=== PATIENT | male | born 1970 | race Hispanic/Latino ===

== ENCOUNTER 2017-04-15 09:09 | Emergency (ER) | payer OTHER ==
[~2017-04-15] VITALS: Ht 177.8 cm; Wt 133.8 kg
[~2017-04-15 09:09] MED LIST: BACTRIM DS TAB1 EACH PO; CLEOCIN HCL300 MG PO; COZAAR50 MG PO; NORCO 10MG-325MG1 EA PO; SENNA-S TABLET1 EA PO; ZOFRAN ODT4 MG SL
[2017-04-15] MEDS ORDERED: SODIUM CHLORIDE 0.9% 1000ML 1,000 ML IV STA (09:38)
[2017-04-15 09:57] LABS: BASOPHILS # (AUTO) 0.1 (0.0-0.1); BASOPHILS % 1.4 % (0.0-1.0); EOSINOPHILS # (AUTO) 0.1 (0.0-0.4); EOSINOPHILS % 3.8 % (0.0-6.0); HEMATOCRIT 48.7 % (38.2-49.6); LYMPHOCYTES # (AUTO) 1.6 (1.0-3.2); LYMPHOCYTES % 42.2 % (18.0-39.1); MEAN CORPUSCULAR HEMOGLOBIN 29.5 pg (28-32); MEAN CORPUSCULAR HGB CONC 34.9 g/dL (31-35); MEAN CORPUSCULAR VOLUME 84.4 fL (81-99); MONOCYTES # (AUTO) 0.6 (0.2-0.8); MONOCYTES % 15.8 % (4.4-11.3); NEUTROPHILS # (AUTO) 1.3 (2.1-6.9); NEUTROPHILS % 35.7 % (38.7-80.0); PLATELET COUNT 187 x10e3/uL (140-360); RED BLOOD COUNT 5.77 x10e6/uL (4.3-5.7); RED CELL DISTRIBUTION WIDTH 13.3 % (11.7-14.4)
[2017-04-15 10:09] LABS: ALANINE AMINOTRANSFERASE 46 IU/L (0-55); ALBUMIN 3.7 g/dL (3.5-5.0); ALKALINE PHOSPHATASE 81 IU/L (40-150); ANION GAP 12.5 mmol/L (8-16); BLOOD UREA NITROGEN 16 mg/dL (7-26); BUN/CREATININE RATIO 16 (6-25); CALCIUM 8.9 mg/dL (8.4-10.2); CARBON DIOXIDE 25 mmol/L (22-29); CHLORIDE 105 mmol/L (98-107); CREATINE KINASE 158 IU/L (30-200); CREATININE, SERUM 0.98 mg/dL (0.72-1.25); EST GLOMERULAR FILTRATION RATE > 60 ML/MIN (60-); GLUCOSE 95 mg/dL (74-118); POTASSIUM 3.5 mmol/L (3.5-5.1); SODIUM 139 mmol/L (136-145)
[2017-04-15 10:15] LABS: TROPONIN I 0.015 ng/mL (0-0.300)
[2017-04-15 12:25] VITALS: BP 133/64
[2017-04-15 12:51] LABS: KETONES,URINE NEGATIVE (NEGATIVE); LEUKOCYTE ESTERASE ,URINE NEGATIVE (NEGATIVE); NITRITE,URINE NEGATIVE (NEGATIVE); URINE UROBILINOGEN 0.2 mg/dL (0.2 - 1)
[2017-04-15 13:06] LABS: BILIRUBIN,URINE 1+ (NEGATIVE); CLARITY,URINE SL CLOUDY (CLEAR); COLOR,URINE YELLOW (YELLOW); PROTEIN,URINE DIPSTICK 1+ (NEGATIVE)
[2017-04-15 13:08] LABS: AMORPHOUS SEDIMENT,URINE RARE (FEW); EPITHELIAL CELLS,URINE RARE /LPF
== END 2017-04-15 12:47 | disposition home or self-care (01) ==
LOC: ER 09:09
DX: R55 Syncope and collapse (principal); R11.0 Nausea; R53.1 Weakness; I10 Essential (primary) hypertension
CPT/HCPCS: 36415; 80053; 81001; 82550; 82553; 84484; 85025; 87086; 87400; 93005; 99284; J7030

== ENCOUNTER → 2018-03-10 | Day surgery (SDC) | payer OTHER ==
[2018-03-08 10:25] LABS: BLOOD UREA NITROGEN 17 mg/dL (7-26); BUN/CREATININE RATIO 17 (6-25); CALCIUM 9.6 mg/dL (8.4-10.2); CARBON DIOXIDE 25 mmol/L (22-29); CHLORIDE 103 mmol/L (98-107); CREATININE, SERUM 0.99 mg/dL (0.72-1.25); EST GLOMERULAR FILTRATION RATE > 60 ML/MIN (60-); GLUCOSE 94 mg/dL (74-118); SODIUM 140 mmol/L (136-145)
[~2018-03-10] MED LIST changes: +AMLODIPINE BESY10 MG PO; +BUPIVACAINE 0.5%/EPI 30 ML SDV INJ ONE; +CEFAZOLIN SOD 2 GM/D5W 50ML 50 ML IV ONE; +DEXAMETHASONE SOD PHOS INJ 4 MG/ML VIAL ONE; +FENTANYL CITRATE/PF 100MCG/2 ML INJ ONE; +HYZAAR 100-12.1 EACH; +KETOROLAC TROMETHAMINE 30 MG/ML VIAL ONE; +LEVOCETIRIZINE D5 MG; +LIDOCAINE HCL 2% LOCAL INJ 5 ML SDV VIAL INJ ONE; +MELOXICAM7.5 MG PO; +MIDAZOLAM HCL 2 MG/2 ML VIAL ONE; +ONDANSETRON HCL INJ 2 MG/ML VIAL ONE; +PROPOFOL IV EMULSION 10 MG/ML 20 ML VIAL ONE; +SEVOFLURANE INHAL SOLN 250 ML PEN BTL ONE; +TAMSULOSIN HCL0.4 MG; +ZANTAC 7575 MG; +ZANTAC50 MG/2 ML
[2018-03-10 10:00] VITALS: BP 139/59
--- NOTE | 2018-03-10 12:34 | Operative Report ---
DATE OF PROCEDURE: March 10, 2018 CLINICAL LABORATORY DIRECTOR: Nara Ardon PREOPERATIVE DIAGNOSES 1. Right knee medial meniscus tear. 2. Right knee degenerative joint disease in the knee. POSTOPERATIVE DIAGNOSIS 1. Right knee medial meniscus tear. 2. Right knee degenerative joint disease in the knee. OPERATIONS/PROCEDURES PERFORMED: Patient underwent 1. Right knee examination under anesthesia. 2. Right knee arthroscopy. 3. Right knee partial medial meniscectomy. 4. Right knee chondroplasty of the patella, trochlea, the medial femoral condyle, and medial tibial plateau, and the lateral tibial plateau. ANESTHESIA: General endotracheal intubation anesthesia. IV FLUIDS: Per the anesthesia record. OPERATIVE PROCEDURE IN DETAIL: Mr. Izquierdo was taken to the operating room, placed in the supine position on the operating room table. Following induction general anesthesia as well as endotracheal intubation, the patient's right lower extremity was examined under anesthesia. He has found to have a mild effusion within the knee joint but otherwise ligamentously stable knee. The patient's lower extremity was prepped and draped in standard surgical fashion. A 2-portal technique was used to provide this patient arthroscopic evaluation of the knee joint. Examination of suprapatellar pouch, medial and lateral gutters found no evidence of loose bodies. There was; however, evidence of chondromalacia of the patellar and trochlear surfaces. Scope was advanced in the medial compartment and chondromalacia of the medial femoral condyle and medial tibial plateau was encountered. There was also a torn medial meniscus. A combination of biting forceps and a motorized shaver were used resect the torn portion of meniscus. Chondroplasties of the medial femoral condyle and medial tibial plateau were performed at this time. Scope was advanced to the intercondylar notch. Anterior cruciate ligament was identified and found to be intact. Scope was advanced in lateral compartment and there was chondromalacia of the lateral tibial plateau. Chondroplasty of the lateral tibial plateau was performed at this time. Scope was then advanced to suprapatellar pouch and chondroplasties of patella and trochlea were performed. The knee was deflated of its sterile normal saline. The portal sites were closed. The knee was injected with Marcaine with epinephrine. Sterile dressings were applied. The patient was awakened and taken to postanesthesia care unit in stable condition. Job#: [id number] [facility]
== END | disposition home or self-care (01) ==
LOC: OR 05:48
PROVIDERS: ATTEND Specialist
DX: S83.221A Peripheral tear of medial meniscus, current injury, right knee, initial encounter (principal); M17.11 Unilateral primary osteoarthritis, right knee; S76.311A Strain of muscle, fascia and tendon of the posterior muscle group at thigh level, right thigh, initial encounter; M22.41 Chondromalacia patellae, right knee; W17.81XA Fall down embankment (hill), initial encounter; Y93.89 Activity, other specified; Y92.89 Other specified places as the place of occurrence of the external cause; Y99.0 Civilian activity done for income or pay; Z88.3 Allergy status to other anti-infective agents; Z88.8 Allergy status to other drugs, medicaments and biological substances; Z01.810 Encounter for preprocedural cardiovascular examination; Z01.812 Encounter for preprocedural laboratory examination; Z68.41 Body mass index [BMI] 40.0-44.9, adult
CPT/HCPCS: 29881; 36415; 80048; 93005; J0690; J1100; J1885; J2001; J2250; J2405; J2704

== ENCOUNTER 2022-05-08 21:11 | Emergency (ER) | payer OTHER ==
[~2022-05-08] VITALS: Ht 177.8 cm; Wt 147.0 kg
[~2022-05-08 21:11] MED LIST changes: -BUPIVACAINE 0.5%/EPI 30 ML SDV INJ ONE; -CEFAZOLIN SOD 2 GM/D5W 50ML 50 ML IV ONE; -DEXAMETHASONE SOD PHOS INJ 4 MG/ML VIAL ONE; -FENTANYL CITRATE/PF 100MCG/2 ML INJ ONE; -KETOROLAC TROMETHAMINE 30 MG/ML VIAL ONE; -LIDOCAINE HCL 2% LOCAL INJ 5 ML SDV VIAL INJ ONE; -MIDAZOLAM HCL 2 MG/2 ML VIAL ONE; -ONDANSETRON HCL INJ 2 MG/ML VIAL ONE; -PROPOFOL IV EMULSION 10 MG/ML 20 ML VIAL ONE; -SEVOFLURANE INHAL SOLN 250 ML PEN BTL ONE
[2022-05-08] MEDS ORDERED: FAMOTIDINE 20 MG TAB PO STA (21:17)
[2022-05-08] MEDS ORDERED: DIPHENHYDRAMINE HCL 25 MG CAP PO STA (21:17)
[2022-05-08] MEDS ORDERED: PREDNISONE 20 MG TAB PO STA (21:17)
[2022-05-08] MEDS ORDERED: PREDNISONE20 MG PO (22:08)
[2022-05-08] MEDS ORDERED: PEPCID20 MG PO (22:08)
[2022-05-08] MEDS ORDERED: EPINEPHRIN0.3 MG/0.3 IM (22:08)
[2022-05-08 22:15] VITALS: BP 142/81
== END 2022-05-08 22:15 | disposition home or self-care (01) ==
LOC: ER 21:14
DX: L50.9 Urticaria, unspecified (principal); I10 Essential (primary) hypertension
CPT/HCPCS: 99284; J7512

== ENCOUNTER 2023-12-28 12:52 | Emergency (ER) | payer OTHER ==
[~2023-12-28] VITALS: Ht 177.8 cm; Wt 147.0 kg
[~2023-12-28 12:52] MED LIST changes: +EPINEPHRIN0.3 MG/0.3 IM; +PEPCID20 MG PO; +PREDNISONE20 MG PO
[2023-12-28] MEDS: FAMOTIDINE 20 MG/2 ML VIAL IV STA (13:26)
[2023-12-28] MEDS: METHYLPREDNISOLONE SOD SUCC 125 MG/2ML VIAL IV ONE (13:26)
[2023-12-28] MEDS: EPINEPHRINE HCL 1:1000 1ML 1 MG/ML AMP INJ ONE (13:26)
[2023-12-28 15:48] VITALS: PULSE 68; RESP 20; TEMP 98.6; O2SAT 96
[2023-12-28] MEDS ORDERED: PEPCID AC10 MG PO (16:06)
[2023-12-28 16:25] VITALS: BP 137/70; PULSE 74; RESP 18; TEMP 98.8
== END 2023-12-28 16:37 | disposition home or self-care (01) ==
LOC: ER 13:00
DX: R06.02 Shortness of breath (principal); R21 Rash and other nonspecific skin eruption; T78.2XXA Anaphylactic shock, unspecified, initial encounter; T63.461A Toxic effect of venom of wasps, accidental (unintentional), initial encounter; I10 Essential (primary) hypertension
CPT/HCPCS: 99283; J2919